=== PATIENT | female | born 1960 | race Caucasian/White ===

== ENCOUNTER 2023-12-11 07:34 | Emergency (ER) | payer OTHER ==
[2023-12-11 07:44] VITALS: BMI 22.7
[2023-12-11] MEDS ORDERED: METHOCARBAMOL 500 MG TABLET ONE (08:38)
[2023-12-11] MEDS ORDERED: ACETAMINOPHEN 325 MG TABLET (FP) ONE (08:38)
[2023-12-11] MEDS ORDERED: IBUPROFEN 400 MG TABLET (FP) PO ONE (08:39)
[2023-12-11] MEDS: IBUPROFEN 400 MG TABLET (FP) PO ONE (08:41)
[2023-12-11] MEDS: METHOCARBAMOL 500 MG TABLET PO ONE (08:42)
[2023-12-11] MEDS: ACETAMINOPHEN 325 MG TABLET (FP) PO ONE (08:42)
[2023-12-11 09:49] VITALS: RESP 16
[2023-12-11] MEDS ORDERED: ONDANSETRON 4 MG/2 ML VIAL ONE (09:54)
[2023-12-11] MEDS ORDERED: levETIRAcetam 500 MG/5 ML INJECTION VIAL IVPB ONE (09:54)
[2023-12-11] MEDS ORDERED: HYDROmorphone HCL CARPU-JECT 2 MG/1 ML DISP.SYRIN ONE (09:54)
[2023-12-11 09:58] LABS: INR 0.93 (0.83-1.09); PROTHROMBIN TIME (PATIENT) 10.7 SEC (9.7-13.0)
[2023-12-11 10:00] LABS: ACTIVATED PTT 30.7 SECONDS (25.2-36.5)
[2023-12-11 10:02] LABS: EOS % 4.5 % (0-4.5); HEMATOCRIT 40.3 % (32.4-45.2); LYMPH % 25.4 % (8-40); MCH 32.2 pg (25.7-33.7); MCHC 34.8 g/dl (32.0-36.0); MEAN CELL VOLUME 92.4 fl (80-96); MEAN PLT VOLUME 9.5 fl (7.5-11.1); MONO % 6.5 % (3.8-10.2); NEUT % 62.6 % (42.8-82.8); PLATELET COUNT 264 10^3/uL (134-434); RBC 4.36 M/mm3 (3.60-5.2); WHITE BLOOD COUNT 7.8 K/mm3 (4.0-10.0)
[2023-12-11] MEDS: ONDANSETRON 4 MG/2 ML VIAL IVPUSH ONE (10:06)
[2023-12-11] MEDS: HYDROmorphone HCl 2 MG/ML VIAL IVPUSH ONE (10:06)
[2023-12-11] MEDS: levETIRAcetam 500 MG/5 ML INJECTION VIAL IVPB ONE (10:07)
[2023-12-11 10:09] LABS: CHLORIDE 101 mmol/L (98-107); POTASSIUM 4.2 mmol/L (3.5-5.1); SODIUM 138 mmol/L (136-145)
[2023-12-11 10:10] LABS: CALCIUM 9.8 mg/dL (8.5-10.1)
[2023-12-11 10:11] LABS: ALBUMIN 4.3 g/dl (3.4-5.0); ANION GAP 8 mmol/L (4-13); CO2 29 mmol/L (21-32)
[2023-12-11 10:12] LABS: BLOOD UREA NITROGEN 15.2 mg/dL (7-18); GLUCOSE,RANDOM 126 mg/dL (74-106)
[2023-12-11 10:14] LABS: SGOT/AST 25 U/L (15-37); SGPT/ALT 33 U/L (13-61)
[2023-12-11 10:15] LABS: CHOLESTEROL 190 mg/dL (50-200)
[2023-12-11 10:17] LABS: BILIRUBIN,TOTAL 0.5 mg/dL (0.2-1); LDL CHOLESTEROL (ONLY SJRH) 118 mg/dL (5-100); TOT PROT 7.8 g/dl (6.4-8.2)
[2023-12-11 10:18] LABS: ALK PHOS 53 U/L (45-117); HDL CHOLESTEROL 66 mg/dL (40-60)
[2023-12-11] MEDS: NICARDIPINE 25 MG in DEXTROSE 5%-WATER - 240 ML IVPB SCH (10:19)
[2023-12-11 10:38] VITALS: TEMP 98.7
[2023-12-11 10:45] LABS: CREATININE 0.6 mg/dL (0.55-1.3)
[2023-12-11 10:51] VITALS: BP 104/62; PULSE 55
[2023-12-11 12:00] LABS: HIV INTERPRETATION NEGATIVE (NEGATIVE)
== END 2023-12-11 11:17 | disposition short-term general hospital (02) ==
LOC: JER 07:34
PROC: 3E033NZ Introduction of Analgesics, Hypnotics, Sedatives into Peripheral Vein, Percutaneous Approach (ICD-10-PCS; principal; 2023-12-11)
PROC: 3E033GC Introduction of Other Therapeutic Substance into Peripheral Vein, Percutaneous Approach (ICD-10-PCS; 2023-12-11)
PROC: 3E033GC Introduction of Other Therapeutic Substance into Peripheral Vein, Percutaneous Approach (ICD-10-PCS; 2023-12-11)
DX: M54.2 Cervicalgia (principal); I72.5 Aneurysm of other precerebral arteries; R51.9 Headache, unspecified; Z20.822 Contact with and (suspected) exposure to COVID-19
CPT/HCPCS: 0241U-QW; 36415; 70450-TC; 80053; 80061; 82550; 82553; 83036; 84484; 85025; 85610; 85730; 86803; 86850; 86900; 86901; 87389; 93005; 93010; 99291